=== PATIENT | female | born 1990 | race Caucasian/White ===

== ENCOUNTER 2018-07-07 18:40 | Outpatient (CLI) | payer OTHER, SELFPAY ==
[2018-07-07 19:54] VITALS: BMI 44.5
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
== END 2018-07-07 20:40 | disposition home or self-care (01) ==
LOC: WPOUT 19:03 → WP 19:35
PROVIDERS: Referring Provider Obstetrics & Gynecology; Visit Provider Obstetrics & Gynecology
DX: Z04.1 Encounter for examination and observation following transport accident (principal); Z3A.38 38 weeks gestation of pregnancy
CPT/HCPCS: 59025; 59050; 99218; G0378

== ENCOUNTER 2018-07-16 16:50 | Inpatient (IN) | payer OTHER, SELFPAY ==
[2018-07-16 16:20] VITALS: BMI 45.1
[2018-07-16 16:49] LABS: ROM Internal Control Test YES-OK TO RESULT pt. (Internal QC); ROM Patient Test POSITIVE (Negative)
[2018-07-16] MEDS: Lactated Ringers 1,000 ML 50 ML IV ×2 (17:10→18:14)
[2018-07-16 17:44] LABS: Hematocrit 36.4 % (37-47); Hemoglobin 12.4 g/dl (12.0-15.0); Mean Corp Hgb Conc 34.1 g/gl (32-36); Mean Corpuscular Hgb 28.6 pg (27.0-32.0); Mean Corpuscular Volume 83.9 fL (81-99); Mean Platelet Vol. 10.1 fl (6.2-12.0); Platelet Count 319 K/mm3 (150-450); RBC Distribution Width CV 14.2 % (11.6-14.6); RBC Distribution Width SD 43.3 fl (35.1-43.9); Red Blood Count 4.34 M/mm3 (4.2-5.4); White Blood Count 14.1 K/mm3 (4.4-11.0)
[2018-07-16 17:53] LABS: Scan Indicated on CBC? Y/N NO
[2018-07-16] MEDS: fentaNYL-bupivacaine (epidural) 100 ML BAG EPIDURAL (18:49)
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
[2018-07-17] MEDS: Oxytocin 30 units/NS 500 ml 30 UNITS/500 ML IV.SOLN 334 UNITS IV (01:05)
[2018-07-17] MEDS: Oxytocin 30 units/NS 500 ml 30 UNITS/500 ML IV.SOLN 167 UNITS IV (01:35)
[2018-07-17] MEDS: HYDROmorphone 1 MG/ML Syringe IV (01:49)
--- NOTE | 2018-07-17 02:06 | PCM.OB.VAG ---
Vaginal Delivery Maternal Presentation: Active Labor Amniotic Membrane Rupture Type: Spontaneous at home Amniotic Fluid Description: Clear Final ESTEFANIA: 07/17/18 Gestational age: 40 Weeks and 0 Days Date of Procedure: 07/17/18 Pre-Operative Diagnosis: labor Post-Operative Diagnosis: labor Surgery/ Procedure Performed: Spontaneous Vaginal Delivery Type of Anesthesia: Epidural, Local with 1% lidocaine - 15 cc Description of Procedure: The patient was complete and pushing and with approximately 7 cm of the scalp protruding through the introitus. She pushed like that with for contractions. At that point I discussed with her that there is a tight perineal band and that laceration was inevitable. I discussed with her that I would cut a small right mediolateral episiotomy and she agreed. A small first-degree medial lateral episiotomy was cut and then the infant delivered on the next push. A vigorous male was delivered over the episiotomy and bilateral vaginal extensions. The remainder the infant was delivered with maternal pushing and gentle traction only in less than 15 seconds. The Pitocin infusion was initiated for active management of the third stage. The cord was clamped and cut [after 1 minute]. The infant was attended to by the waiting nursing staff. At that point, I was called away for an emergency in another room. I placed some packing in the vagina and Dr. Barroso was called in to attend the patient. The placenta was delivered spontaneously and intact. The cervix was intact. She began closing the vaginal vault lacerations with 3-0 Vicryl repeat suture. I then scrubbed back into assist her. The perineal body was built back up with 2-0 Vicryl sutures. The remainder the vaginal epithelium and perineal skin was then closed with 3-0 Vicryl suture in a running fashion. A rectal exam was done before and after the closure to ensure that the anal sphincter was intact and no sutures were extending into the rectum. Sponge and needle counts were correct. A vaginal sweep was completed by me. Presentation: TAWNYA Placental Delivery Description: Spontaneous Placenta Disposition: [facility] Cord Vessel Description: 3 Vessels Cord Entanglement: None Drain: Gay to straight drain Estimated Blood Loss: 500 A gender: Male (1 minute): 8 (5 minute): 9 Episiotomy Description: 2nd degree Laceration: Vaginal Extension/lac Medications given after delivery: IV Pitocin, - - Dilauded 1 mg iv Complications: None
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
[2018-07-17 08:45] VITALS: BP 120/89; PULSE 86; RESP 16; TEMP 36.7; O2SAT 99
[2018-07-17 12:00] VITALS: BP 117/73; PULSE 81; RESP 18; TEMP 36.8; O2SAT 98
[2018-07-17] MEDS: Naproxen 250 MG Tablet PO ×2 (12:04→20:21)
[2018-07-17] MEDS: Acetaminophen 500 MG Tablet 1000 MG PO (14:12)
[2018-07-17 16:45] VITALS: BP 129/76; PULSE 77; RESP 16; TEMP 36.4
[2018-07-17 20:15] VITALS: BP 139/69; PULSE 78; RESP 17; TEMP 36.4
[2018-07-17 23:40] VITALS: BP 99/69; PULSE 90; RESP 17; TEMP 36.4
[2018-07-18] MEDS: Acetaminophen 500 MG Tablet 1000 MG PO ×2 (01:40→19:57)
[2018-07-18 03:30] VITALS: BP 119/73; PULSE 76; RESP 18; TEMP 36.4
[2018-07-18] MEDS: Naproxen 250 MG Tablet PO ×2 (05:30→16:25)
[2018-07-18 06:29] LABS: Hematocrit 30.8 % (37-47); Hemoglobin 10.1 g/dl (12.0-15.0); Mean Corp Hgb Conc 32.8 g/gl (32-36); Mean Corpuscular Hgb 27.7 pg (27.0-32.0); Mean Corpuscular Volume 84.6 fL (81-99); Mean Platelet Vol. 10.3 fl (6.2-12.0); Platelet Count 279 K/mm3 (150-450); RBC Distribution Width CV 14.7 % (11.6-14.6); RBC Distribution Width SD 43.8 fl (35.1-43.9); Red Blood Count 3.64 M/mm3 (4.2-5.4); Scan Indicated on CBC? Y/N NO; White Blood Count 18.7 K/mm3 (4.4-11.0)
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
--- NOTE | 2018-07-18 08:36 | DCINST_ITS ---
Discharge Diet: No Restrictions Discharge Activity: Return to Normal Activity, May not drive while taking narcotic pain medications., May Shower May resume sexual activity in: 4-6 weeks Additional Activity Instructions:: Nothing in the vagina for 4-6 weeks. You may return to work/school in 6 weeks. Call your doctor if your incision/area has: Continuous Slow Oozing, Sudden Increased Bleeding, Increased Pain/ Swelling, Increased Redness, Foul Smelling Discharge Call your doctor if you observe: Fever of 101 or Higher Additional Instructions: If you experience any of the following, contact your healthcare provider. * Bleeding that soaks a pad every hour for 2 hours * Fever 100.4 or higher * Unrelieved incision or abdominal pain * Swelling, redness, discharge or bleeding from your incision or episiotomy site * Your incision begins to separate * Problems urinating (including inability to urinate or burning while urinating). * Visual changes * Severe headache * Flu-like symptoms * Pain or redness in one of both of your breasts * Pain, warmth, tenderness or swelling in your legs, especially the calf area * Frequent nausea and vomiting * Symptoms of depression or anxiety If you experience any of the following, call 911 or go to the nearest Emergency Room. * Chest pain * Problems breathing * Seizure activity * Partial or complete paralysis of a body part, slurred speech, weakness or drooping of the face, or a sudden inability to walk or hold your balance Allergies/Adverse Reactions: Allergies No Known Allergies Allergy (Verified 07/07/18 19:55) Medications to take at Discharge Iron 1 tab PO DAILY 07/07/18 Prenatabs FA 1 tab PO DAILY 07/07/18 Flogen 900 mg Caplet 1 tab PO DAILY 07/16/18 Naproxen [Naprosyn] 250 - 500 mg PO Q8H PRN PRN #30 tablet 07/18/18 Oxycodone HCl/Acetaminophen [Percocet 5/325] 1 - 2 tablet PO Q6H PRN PRN 5 Days #10 tablet 07/18/18 Senna/Docusate Sodium [Senokot-S] 1 - 2 tablet PO DAILY PRN PRN #30 tablet 07/18/18 The following prescriptions were given: Oxycodone HCl/Acetaminophen [Percocet 5/325] 1 - 2 tablet PO Q6H PRN PRN 5 Days #10 tablet PRN Reason: Pain Naproxen [Naprosyn] 250 - 500 mg PO Q8H PRN PRN #30 tablet PRN Reason: Mild Pain (-11/29) Senna/Docusate Sodium [Senokot-S] 1 - 2 tablet PO DAILY PRN PRN #30 tablet PRN Reason: Constipation When: call to make an appointment in the office within 1-2 weeks post and then again for your 6 weeks post check. Primary Care Physician: Care Physician,No Primary [Primary Care Provider] - Test Results: Test results from this visit will be discussed in further detail at your follow- up appointment, if applicable.
[2018-07-18 10:00] VITALS: BP 113/77; PULSE 80; RESP 16; TEMP 36.2
[2018-07-18 16:00] VITALS: BP 113/68; PULSE 77; RESP 16; TEMP 36.6
[2018-07-18] MEDS: Senna/Docusate Sodium 1 Tablet PO (16:26)
[2018-07-18 19:59] VITALS: BP 129/66; PULSE 77; RESP 17; TEMP 36.6; O2SAT 97
[2018-07-19 01:40] VITALS: BP 113/69; PULSE 73; RESP 17; TEMP 36.4; O2SAT 98
[2018-07-19] MEDS: Naproxen 250 MG Tablet PO (07:37)
[2018-07-19 07:40] VITALS: BP 117/67; PULSE 78; RESP 16; TEMP 36.3; O2SAT 97
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
[2018-07-19 12:26] VITALS: BP 117/81; PULSE 75; PULSE 76; RESP 16; TEMP 36.6; O2SAT 96
[2018-07-19] MEDS: Acetaminophen 500 MG Tablet 1000 MG PO (12:44)
== END 2018-07-19 12:35 | disposition home or self-care (01) | DRG 807 ==
LOC: WPOUT 16:51 → WP 16:52
PROVIDERS: Admitting Provider Obstetrics & Gynecology; Referring Provider Obstetrics & Gynecology; Visit Provider Obstetrics & Gynecology
DX: O71.4 Obstetric high vaginal laceration alone (principal); Z37.0 Single live birth; Z3A.40 40 weeks gestation of pregnancy
CPT/HCPCS: 59025; 59050; 84112; 85027; 86850; 86900; 99218; J7120; G0378

== ENCOUNTER → 2020-06-12 09:05 | Outpatient (CLI) | payer OTHER, SELFPAY | PROVIDERS: Referring Provider Advanced Practice Midwife; Visit Provider Advanced Practice Midwife | DX: Z11.59 Encounter for screening for other viral diseases (principal) | CPT/HCPCS: 87635; C9803; U0003 ==

== ENCOUNTER 2020-06-14 12:15 | Inpatient (IN) | payer OTHER, SELFPAY ==
[2020-06-14] VITALS (38 sets, daily range): BP systolic 103–145; BP diastolic 56–82; PULSE 76–99; RESP 18; TEMP 36.8–37.4; O2SAT 86–100; BMI 43.1
[2020-06-14] MEDS: Lactated Ringers 1,000 ML 50 ML IV ×2 (13:00→15:07)
[2020-06-14] MEDS: Oxytocin 30 units/NS 500 ml 30 UNITS/500 ML IV.SOLN IV (13:00)
[2020-06-14 14:30] LABS: Absolute Lymphocyte Count 1.89 X10^3/uL (0.83-4.51); Absolute Neutrophil Count 9.2 X10^3/uL (2.0-7.7); Basophil# 0.04 X10^3/uL; Basophil% 0.3 % (0-1); Eosinophil# 0.05 X10^3/uL; Eosinophils% 0.4 % (0-5); Hematocrit 38.3 % (37-47); Hemoglobin 12.3 g/dL (12.0-15.0); Lymphocyte # 1.89 X10^3/ul (4.0); Lymphocyte % 15.9 % (19-41); Mean Corp Hgb Conc 32.1 g/dL (32-36); Mean Corpuscular Hgb 26.9 pg (27.0-32.0); Mean Corpuscular Volume 83.8 fL (81-99); Mean Platelet Vol. 10.1 fl (6.2-12.0); Monocyte# 0.62 X10^3/uL; Monocyte% 5.2 % (0-10); NRBC Flagged by Analyzer 0 % (0-5); Neutrophil # 9.22 X10^3/uL (2.7-7.7); Neutrophil % 77.9 % (47-70); Platelet Count 295 K/mm3 (150-450); RBC Distribution Width CV 13.6 % (11.6-14.6); Red Blood Count 4.57 M/mm3 (4.2-5.4); White Blood Count 11.9 K/mm3 (4.4-11.0)
[2020-06-14] MEDS: Lactated Ringers 500 ML 999 ML IV (18:52)
[2020-06-14] MEDS: fentaNYL-bupivacaine (epidural) 100 ML BAG EPIDURAL (20:20)
[2020-06-14] MEDS: Oxytocin 30 units/NS 500 ml 30 UNITS/500 ML IV.SOLN 334 UNITS IV (21:06)
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
--- NOTE | 2020-06-14 21:24 | PCM.OPRPT ---
Vaginal Delivery Maternal Presentation: Medically Indicated Induction Method of Induction: Pitocin Medical Reason for Induction: Premature Rupture of Membranes Amniotic Membrane Rupture Type: Spontaneous at home Amniotic Fluid Description: Clear Final ESTEFANIA: 06/25/20 Final ESTEFANIA Source: US <20 weeks Gestational age: 38 Weeks and 3 Days Date of Procedure: 06/14/20 Pre-Operative Diagnosis: labor Post-Operative Diagnosis: same Surgery/ Procedure Performed: Spontaneous Vaginal Delivery Type of Anesthesia: Epidural Description of Procedure: A vigorous male infant was delivered [BARNEY] over [a second-degree perineal laceration]. The remainder the was delivered with maternal pushing and gentle traction only in less than 15 seconds. The Pitocin infusion was initiated for active management of the third stage. The cord was clamped and cut [after 1 minute]. The infant was attended to by the waiting nursing staff. The placenta was delivered spontaneously and intact. The cervix and vagina were intact. [The second-degree perineal laceration was repaired with 3-0 Vicryl suture in a running standard fashion.] Sponge and needle counts were correct. A vaginal sweep was completed by me. Delivery time: 2103 Presentation: BARNEY Placental Delivery Description: Spontaneous Placenta Disposition: [facility] Cord Vessel Description: 3 Vessels Cord Entanglement: None Drain: - - none Estimated Blood Loss: 300 A gender: Male - Chris (1 minute): 9 (5 minute): 9 Episiotomy Description: None Laceration: 2nd degree Medications given after delivery: IV Pitocin Complications: None
[2020-06-14] MEDS: Acetaminophen 500 MG Tablet 1000 MG PO (23:07)
[2020-06-15] MEDS: Naproxen 250 MG Tablet 500 MG PO ×2 (01:04→17:00)
[2020-06-15 04:33] VITALS: BP 106/47; PULSE 79; RESP 18; TEMP 36.1
[2020-06-15] MEDS: Acetaminophen 500 MG Tablet 1000 MG PO ×2 (07:22→21:15)
[2020-06-15] MEDS: Senna/Docusate Sodium 1 Tablet PO (07:22)
[2020-06-15 08:10] VITALS: BP 134/83; PULSE 74; RESP 16; TEMP 36.7
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
[2020-06-15 11:30] VITALS: BP 125/82; PULSE 84; RESP 16; TEMP 36.7
[2020-06-15 16:30] VITALS: BP 126/72; PULSE 79; RESP 16; TEMP 36.8
[2020-06-15 21:05] VITALS: BP 119/68; PULSE 75; RESP 18; TEMP 36.3
[2020-06-16 01:42] VITALS: BP 127/79; PULSE 83; RESP 16; TEMP 36.7
[2020-06-16] MEDS: Naproxen 250 MG Tablet 500 MG PO (06:24)
[2020-06-16] MEDS: Senna/Docusate Sodium 1 Tablet PO (06:24)
[2020-06-16 08:05] VITALS: BP 125/66; PULSE 79; RESP 16; TEMP 36.5
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
--- NOTE | 2020-06-16 09:54 | DCINST_ITS ---
Discharge Diet: No Restrictions Discharge Activity: Return to Normal Activity, May not drive while taking narcotic pain medications., May Shower May resume sexual activity in: 4-6 weeks Additional Activity Instructions:: Nothing in the vagina for 4-6 weeks. You may return to work/school in 6 weeks. Call your doctor if your incision/area has: Continuous Slow Oozing, Sudden Increased Bleeding, Increased Pain/ Swelling, Increased Redness, Foul Smelling Discharge Additional Instructions: If you experience any of the following, contact your healthcare provider. * Bleeding that soaks a pad every hour for 2 hours * Fever 100.4 or higher * Unrelieved incision or abdominal pain * Swelling, redness, discharge or bleeding from your incision or episiotomy site * Your incision begins to separate * Problems urinating (including inability to urinate or burning while urinating). * Visual changes * Severe headache * Flu-like symptoms * Pain or redness in one of both of your breasts * Pain, warmth, tenderness or swelling in your legs, especially the calf area * Frequent nausea and vomiting * Symptoms of depression or anxiety If you experience any of the following, call 911 or go to the nearest Emergency Room. * Chest pain * Problems breathing * Seizure activity * Partial or complete paralysis of a body part, slurred speech, weakness or drooping of the face, or a sudden inability to walk or hold your balance * You may use over the counter stool softeners as needed Allergies/Adverse Reactions: Allergies No Known Allergies Allergy (Verified 05/12/19 13:40) Medications to take at Discharge Prenatabs FA 1 tab PO DAILY 07/07/18 Please Follow Up With: Zenobia Raygoza MD - [phone] When: Call to make an appointment with your doctor's office in 1-2 and 6 weeks or as needed. Primary Care Physician: Care Physician,No Primary [Primary Care Provider] - Test Results: Test results from this visit will be discussed in further detail at your follow- up appointment, if applicable.
--- NOTE | 2020-06-16 09:54 | PCM.DCVAG ---
Discharge Diet: No Restrictions Discharge Activity: Return to Normal Activity, May not drive while taking narcotic pain medications., May Shower May resume sexual activity in: 4-6 weeks Additional Activity Instructions:: Nothing in the vagina for 4-6 weeks. You may return to work/school in 6 weeks. Call your doctor if your incision/area has: Continuous Slow Oozing, Sudden Increased Bleeding, Increased Pain/ Swelling, Increased Redness, Foul Smelling Discharge Additional Instructions: If you experience any of the following, contact your healthcare provider. Bleeding that soaks a pad every hour for 2 hours Fever 100.4 or higher Unrelieved incision or abdominal pain Swelling, redness, discharge or bleeding from your incision or episiotomy site Your incision begins to separate Problems urinating (including inability to urinate or burning while urinating). Visual changes Severe headache Flu-like symptoms Pain or redness in one of both of your breasts Pain, warmth, tenderness or swelling in your legs, especially the calf area Frequent nausea and vomiting Symptoms of depression or anxiety If you experience any of the following, call 911 or go to the nearest Emergency Room. Chest pain Problems breathing Seizure activity Partial or complete paralysis of a body part, slurred speech, weakness or drooping of the face, or a sudden inability to walk or hold your balance You may use over the counter stool softeners as needed Allergies/Adverse Reactions: Allergies No Known Allergies Allergy (Verified 05/12/19 13:40) Medications to take at Discharge Prenatabs FA 1 tab PO DAILY 07/07/18 Please Follow Up With: Zenobia Raygoza MD - [phone] When: Call to make an appointment with your doctor's office in 1-2 and 6 weeks or as needed. Primary Care Physician: Care Physician,No Primary [Primary Care Provider] - Test Results: Test results from this visit will be discussed in further detail at your follow-up appointment, if applicable.
--- NOTE | 2020-06-16 10:50 | CASEMGMT ---
Social Work Assessment Labor and Delivery Unit Patient Address: [facility] [place] [address] Phone number: [phone] Date of Referral: 06/14/2020 Time of Referral: 2350 Referred By: Dr. Savage Marti Date of Intervention: 06/16/2020 Time of Intervention: 1050 Reason for Referral: Maternal history of depression History obtained from: Medical records and mother of baby (MOB) Angie Neal, and father of baby (FOB) Mario Neal. Household composition: MOB, FOB, and their older son Paolo. Home situation is reported to be safe and adequate. Patient's parent/guardian status: SUSIE is a 38-year-old female, to DAYANA who is also 30 years old. MOB and FOB have been together for 12 years, since high school. No reported safety concerns in the home, and upon admission SUSIE denies any form of abuse. No indication during assessment of any safety concerns. MOB and FOTami now have 2 children Paolo Neal (born 07/17/2018) and Chris Neal (born 06/14/2020). Medical History: SUSIE is 2, para 1 now 2 after delivering Chris. Chart indicates that SUSIE has a history of Hernandez Parkinson's White disease. care started at 9 weeks gestation and adequate thereafter. Chris was born at 38 weeks gestation, LGA at 4110 g. Apgars 9 and 9 at 1 and 5 minutes of life respectively. Educational Status: SUSIE highest level of education is a graduate degree. No reported issues with learning or comprehension issues. 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 DAYANA works as a mortgage mortgage loan underwriter. No reported financial concerns indicated. Infant Supplies: MOB and FOB report to have all needed infant supplies including safe sleep space and car seat for baby. SUSIE is breast-feeding the baby, but reports being open to formula feeding when MOB stops finding luly from breast-feeding. Childcare/Caregiver(s): MOB and FOB will be the primary caretakers at the baby. The parents already have childcare set up for when SUSIE returns to work. Transportation: No reported concerns. Programs/Agencies Involved: No agency involvement other than [employer] for the parents oldest child Paolo. Children Services/Legal Issues: None. Behavioral Health Issues: Mental Health History: MOB reports history of depression after the of Paolo which lasted for about 5 months. MOB endorses history of pseudo-suicidal ideation 1 time during the time with Paolo. MOB reports she did not like having this thought and sought out support. MOB reports to be feeling better this time around. Substance Use History: No reports of any substance use issues. Family History: Not discussed. Drug Screens: Negative maternal drug screen on 11/19/2019. Family/Social Stressors: No reported concerns or stressors at this time. Support Systems: MOB reports good support from both sides of the family and from FOB. Depression: Information provided. ASSESSMENT: Met with MOB and FOB in room, introducing to social work grow role and reason for visit. FOB holding baby during social work visit, attentive and appropriate in care of baby. Both parents cooperative and willing to meet with social work. MOB held good eye contact, mood and affect appropriate and congruent to content discussed. MOB reports to be feeling better emotionally this time around as compared to the last time. MOB reports that the FOB mentioned earlier in the hospital stay that the FOB noticed MOB bonding with and engaging with this baby more so at this time, as compared to the same time after Paolo was born. MOB reports willingness to speak to her support system if symptoms of arise again, and is willing to seek out support outside of family if needed. Parents report to have an adequate support system and supplies to care for the baby. No voiced concerns by hospital staff regarding parent-child interactions or bonding. MOB receptive to accepting mood and anxiety disorder packet which includes local and online resources for support. PLAN: MOB and infant to discharge home. MOB will have support from family at home-going. Resources provided on mood and anxiety disorders including will return if additional support as needed. The family continues to work with [employer] for MOB oldest child. No other services requested or indicated. -NATASHA Han, BEVERLY *Information documented in this assessment generated with [employer]*
[2020-06-19 01:48] LABS: Hemoglobin 11.3 g/dL (12.0-15.0); Mean Corp Hgb Conc 31.4 g/dL (32-36); Mean Corpuscular Hgb 27.2 pg (27.0-32.0); Mean Corpuscular Volume 86.7 fL (81-99); Mean Platelet Vol. 9.4 fl (6.2-12.0); Platelet Count 326 K/mm3 (150-450); RBC Distribution Width CV 13.7 % (11.6-14.6); RBC Distribution Width SD 43.1 fl (35.1-43.9); Red Blood Count 4.15 M/mm3 (4.2-5.4); White Blood Count 11.9 K/mm3 (4.4-11.0)
[2020-06-19 01:56] LABS: International Normalized Ratio 0.9; Prothrombin Time (Protime)PT. 11.7 SECONDS (11.7-14.9)
[2020-06-19 01:58] LABS: Partial Thromboplast Time 32.9 Seconds (24.1-36.2)
[2020-06-19 02:01] LABS: AST(SGOT) 14 U/L (15-37); Alanine Aminotransfer ALT/SGPT 21 U/L (13-56); Creatinine, Serum 0.55 mg/dL (0.55-1.02); EST Glomerular Filtration Rate 137 mL/min (>60); Est Glom Filt Rate - Afr Amer 166 mL/min (>60); Estimated Creatinine Clearance 112.86 ml/min; Uric Acid 4.9 mg/dL (2.6-6.0)
== END 2020-06-16 12:00 | disposition home or self-care (01) | DRG 807 ==
PROVIDERS: Obstetrics & Gynecology; Admitting Provider Obstetrics & Gynecology; Visit Provider Obstetrics & Gynecology
DX: O42.92 Full-term premature rupture of membranes, unspecified as to length of time between rupture and onset of labor (principal); Z37.0 Single live birth; O99.210 Obesity complicating pregnancy, unspecified trimester; Z3A.38 38 weeks gestation of pregnancy; E66.9 Obesity, unspecified; I45.6 Pre-excitation syndrome; O70.1 Second degree perineal laceration during delivery
CPT/HCPCS: 59025; 59050; 82565; 84450; 84460; 84550; 85025; 85027; 85610; 85730; 86850; 86900; 86901; 99218; J7120; 90686; G0378

== ENCOUNTER → 2020-06-14 | Outpatient (CLI) | payer OTHER, SELFPAY ==
[2020-06-14 09:57] LABS: ROM Internal Control Test YES-OK TO RESULT pt. (Internal QC)
[2020-06-14 10:04] LABS: ROM Patient Test POSITIVE (Negative)
== END | disposition home or self-care (01) ==
LOC: LABSPEC 09:24
PROVIDERS: Referring Provider Advanced Practice Midwife; Visit Provider Advanced Practice Midwife
DX: Z34.93 Encounter for supervision of normal pregnancy, unspecified, third trimester (principal); Z3A.38 38 weeks gestation of pregnancy
CPT/HCPCS: 84112

== ENCOUNTER 2020-06-19 01:00 | Outpatient (CLI) | payer OTHER, SELFPAY ==
[2020-06-14 12:29] VITALS: BMI 43.1
[2020-06-19 01:15] VITALS: PULSE 85; O2SAT 95
[2020-06-19 01:18] VITALS: BP 135/88; PULSE 92
[2020-06-19 01:34] VITALS: BP 132/83; PULSE 74
[2020-06-19 01:46] VITALS: BMI 40.2
[2020-06-19 01:49] VITALS: BP 123/68; PULSE 76
[2020-06-19 02:04] VITALS: BP 126/75; PULSE 74
[2020-06-19 02:17] LABS: International Normalized Ratio 0.9; Prothrombin Time (Protime)PT. 11.7 SECONDS (11.7-14.9)
[2020-06-19 02:18] LABS: Partial Thromboplast Time 32.9 Seconds (24.1-36.2)
[2020-06-19 02:19] VITALS: BP 128/78; PULSE 72
[2020-06-19 02:19] LABS: AST(SGOT) 14 U/L (15-37); Alanine Aminotransfer ALT/SGPT 21 U/L (13-56); Creatinine, Serum 0.55 mg/dL (0.55-1.02); EST Glomerular Filtration Rate 138 mL/min (>60); Est Glom Filt Rate - Afr Amer 167 mL/min (>60); Estimated Creatinine Clearance 112.86 ml/min; Hemoglobin 11.3 g/dL (12.0-15.0); Mean Corpuscular Volume 86.7 fL (81-99); Red Blood Count 4.15 M/mm3 (4.2-5.4); Uric Acid 4.9 mg/dL (2.6-6.0); White Blood Count 11.9 K/mm3 (4.4-11.0)
[2020-06-19 02:20] LABS: Mean Corp Hgb Conc 31.4 g/dL (32-36); Mean Corpuscular Hgb 27.2 pg (27.0-32.0); Mean Platelet Vol. 9.4 fl (6.2-12.0); Platelet Count 326 K/mm3 (150-450); RBC Distribution Width CV 113.7 % (11.6-14.6); RBC Distribution Width SD 43.1 fl (35.1-43.9)
--- NOTE | 2020-06-19 02:37 | NURSING ---
Patient arrived reporting BP at home 170/100s with RUQ pain starting at 2300. She reports her pain a 1 out of 10 now but rated it a 6 while at home. Vitals done and SL placed at 0130 with PRE lab draw. Patient evaluated per nursing. Patient denies headache, blurry vision, nausea and vomiting. Lungs clear, heart regular, abdomen soft, no clonus noted, reflexes +2. Abdomen tender upon palpation to RUQ. Patient states she has not yet had bowel movement today and normally does daily. BP upon arrival 135/88, 132/83, 123/68, and 126/75. Dr Barroso called and updated on the above. Discharge order received. Patient to schedule appointment for 1-2 weeks and bring her BP cuff with her.Patient receptive, denies questions or concerns.
--- NOTE | 2020-06-21 20:05 | OB.TRI.NOTE ---
- Problem List (1) state Status: Acute (2) Elevated blood pressure reading Status: Acute History of Present Illness Date of Service: 06/19/20 Reason For Visit: elevated BP at home Final ESTEFANIA Source: US <20 weeks History of Present Illness: Patient is from a vaginal delivery. No elevated blood pressure outside of or during the . She reports checking her blood pressure at home and it was 170 systolic over 100 diastolic. She also reports right upper quadrant pain. She feels this pain is musculoskeletal in nature. She presents for rule out preeclampsia. She otherwise feels well. No headaches, vision changes. Upon arrival to triage her right upper quadrant pain had improved. Allergies No Known Allergies Allergy (Verified 06/19/20 02:16) Laboratory Studies: Laboratory Tests 06/19/20 06/19/20 06/19/20 Range/Units 01:30 01:30 01:30 WBC 11.9 H (4.4-11.0) K/mm3 RBC 4.15 L (4.2-5.4) M/mm3 Hgb 11.3 L (12.0-15.0) g/dL Hct 36.0 L (37-47) % MCV 86.7 (81-99) fL MCH 27.2 (27.0-32.0) pg MCHC 31.4 L (32-36) g/dL RDW Std Deviation 43.1 (35.1-43.9) fl RDW Coeff of [place] 113.7 H (11.6-14.6) % Plt Count 326 (150-450) K/mm3 MPV 9.4 (6.2-12.0) fl PT 11.7 (11.7-14.9) SECONDS INR 0.9 APTT 32.9 (24.1-36.2) Seconds Creatinine 0.55 (0.55-1.02) mg/dL Estim Creat Clear Calc 112.86 ml/min Est GFR (MDRD) Af Amer 167 (>60) mL/min Est GFR (MDRD) Non-Af 138 (>60) mL/min Uric Acid 4.9 (2.6-6.0) mg/dL AST 14 L (15-37) U/L ALT 21 (13-56) U/L Physical Exam Vitals: Vital Signs Pulse BP Pulse Ox 72 128/78 H 95 06/19/20 02:19 06/19/20 02:19 06/19/20 01:15 Impression/Plan Right upper quadrant pain has improved. Blood pressures all within normal limits. Preeclampsia work-up negative. Discussed with patient to follow-up in the office and bring her blood pressure cuff in.
== END 2020-06-19 02:35 | disposition home or self-care (01) ==
LOC: WPOUT 01:09 → WP 01:10
PROVIDERS: Visit Provider Obstetrics & Gynecology
DX: O90.89 Other complications of the puerperium, not elsewhere classified (principal); R10.11 Right upper quadrant pain; R03.0 Elevated blood-pressure reading, without diagnosis of hypertension
CPT/HCPCS: 36415; 82565; 84450; 84460; 84550; 85027; 85610; 85730; 99218; G0378